=== PATIENT | male | born 1980 | race Caucasian/White ===

== ENCOUNTER 2019-01-22 11:34 | Emergency (ER) | payer SELFPAY ==
--- NOTE | 2019-01-22 12:34 | EDM.PDOC ---
ED HPI GENERAL MEDICAL PROBLEM - General Chief Complaint: Upper Extremity Injury/Pain Stated Complaint: L WRIST INJURY Time Seen by Provider: 01/22/19 12:29 Source of Information: Reports: Patient History Limitations: Reports: No Limitations - History of Present Illness INITIAL COMMENTS - FREE TEXT/NARRATIVE: Alert 38 yo male present due to left wrist injury. Patient was bull riding yesterday and fell off the Bull per usual around 7:30 pm. Patient denied pain or injury yesterday. Patient ate breakfast around 10:30 this am. Patient noticed increased pain and swelling left wrist. Patient took Ibuprofen 800mg last night and was able to sleep. Patient is right handed. Patient denies injury or surgery to left wrist in the past. Left Wrist Pain Score (Numeric/FACES): 5 - Related Data Allergies Allergy/AdvReac Type Severity Reaction Status Date / Time No Known Allergies Allergy Verified 01/22/19 12:18 Home Meds: Home Meds NK [No Known Home Meds] 01/22/19 [History] Past Medical History Musculoskeletal History: Reports: Other (See Below) - Past Surgical History Musculoskeletal Surgical History: Reports: Other (See Below) Other Musculoskeletal Surgeries/Procedures:: ankle, wrist, elbow and jaw repairs after fractures. Social & Family History - Tobacco Use Smoking Status *Q: Current Some Day Smoker Years of Tobacco use: 20 Packs/Tins Daily: 1 - Recreational Drug Use Recreational Drug Use: No Review of Systems - Review of Systems Review Of Systems: ROS reveals no pertinent complaints other than HPI. ED EXAM, GENERAL - Physical Exam Exam: See Below Exam Limited By: No Limitations General Appearance: Alert, WD/WN, Mild Distress Eye Exam: Bilateral Eye: EOMI, PERRL Ears: Normal External Exam, Hearing Grossly Normal Nose: Normal Inspection, Normal Mucosa Throat/Mouth: Normal Inspection, Normal Lips, Normal Teeth, Normal Voice, No Airway Compromise Head: Atraumatic, Normocephalic Neck: Normal Inspection, Supple, Non-Tender, Full Range of Motion Respiratory/Chest: No Respiratory Distress, Lungs Clear, Normal Breath Sounds, No Accessory Muscle Use, Chest Non-Tender Cardiovascular: Normal Peripheral Pulses, Regular Rate, Rhythm, No Edema GI/Abdominal: Normal Bowel Sounds, Soft, Non-Tender, No Organomegaly. No: Distended, Guarding, Rigid, Rebound, Tender Back Exam: Normal Inspection, Full Range of Motion, NT Extremities: Normal Inspection, Normal Range of Motion, No Pedal Edema, Normal Capillary Refill, Joint Swelling (left joint swelling and pain ). No: Redness ( ski intact) Neurological: Alert, Oriented, CN II-XII Intact, Normal Cognition, Normal Gait, Normal Reflexes, No Motor/Sensory Deficits Psychiatric: Normal Affect, Normal Mood Skin Exam: Warm, Dry, Intact, Normal Color, No Rash ED TRAUMA EXTREMITY PROCEDURES - Splinting Left Upper Extremity Splint Site: left wrist Pre-Procedure NV Status: Normal Post-Procedure NV Status: Normal Splint Material: Fiberglass Splint Design: Sugar Tong Applied & Form Fitted By: Provider Provider Post-Splint Application NV Check: NV Status Normal Complications: No Course - Vital Signs Last Recorded V/S: Last Vital Signs Temp 34.7 C L 01/22/19 12:17 Pulse 75 01/22/19 12:17 Resp 16 01/22/19 12:17 BP 112/59 L 01/22/19 12:17 Pulse Ox 100 01/22/19 12:17 - Radiology Interpretation Free Text/Narrative:: Left Wrist XR: Minimal displacement multiple fracture fragments involving intraarticular fracture involving distal radius and ulnar styloid. Soft Tissue swelling noted. Patient will be splinted and instructed to call Orthopedic clinic near home for evaluation and [id number] this week as surgical intervention will likely be needed. Radiology report reviewed. Departure - Departure Time of Disposition: 13:40 Disposition: Home, Self-Care 01 Clinical Impression: Distal radius fracture, left, Fracture of ulnar styloid, Fracture of radius and ulna, Wrist fracture, left - Discharge Information Instructions: Pain Medicine Instructions, [id number] Referrals: PCP,None [Primary Care Provider] - 3 Days (Orthopedic clinic at home for evaluation and discuss surgical intervention) Forms: ED Department Discharge Additional Instructions: 1. Comminuted distal radius intraarticular fracture with ulnar styloid fracture noted. Patient will be splinted and instructed to call Orthopedic clinic near home for evaluation and [id number] this week as surgical intervention will likely be needed. 1. Ice 15-20 minutes 3-4 times per day. 2. Elevated as much as possible. Sling per comfort and allow for elevated of hand 3. Tylenol 500-1000mg every 6 hrs for mild to moderate pain. 4. Ibuprofen 600-800mg every 6 hours with food for pain swelling and inflammation. 5. Call Orthopedic clinic for recheck in 1-2 weeks for repeat evaluation and possible cast placement due to hand injury. 6. No obvious fracture but due to examination findings and mechanism of injury fracture is very likely.
--- NOTE | 2019-01-22 13:03 | CRLCR ---
Indication: Injury to left wrist after falling off bull. Technique: Three views of the left wrist were obtained. Comparison: None Findings: A comminuted intra-articular distal radial fracture is identified with only mild dislocation. An ulnar styloid fracture is seen. No other fractures are identified. The joint spaces are well maintained. Impression: Distal radial and ulnar fractures. Dictated by Valentina Randhawa MD @ Jan 22 2019 1:01PM Signed by Dr. Valentina Randhawa @ Jan 22 2019 1:02PM
== END 2019-01-22 13:55 | disposition home or self-care (01) ==
LOC: JP.ED 11:34
DX: S52.502A Unspecified fracture of the lower end of left radius, initial encounter for closed fracture (principal); S52.612A Displaced fracture of left ulna styloid process, initial encounter for closed fracture; F17.210 Nicotine dependence, cigarettes, uncomplicated; V80.018A Animal-rider injured by fall from or being thrown from other animal in noncollision accident, initial encounter
CPT/HCPCS: 29125; 73110-LT; 99283-25